=== PATIENT | male | born 1995 | race Two or more races ===

== ENCOUNTER 2021-02-22 04:10 | Emergency (ER) | payer OTHER ==
[2021-02-22 04:23] VITALS: BP 160/82; PULSE 87; TEMP 99.1; BMI 29.2
[2021-02-22] MEDS ORDERED: IBUPROFEN 600 MG TABLET (FP) PO ONE (04:52)
== END 2021-02-22 05:00 | disposition home or self-care (01) ==
LOC: FER 04:10
DX: S93.402A Sprain of unspecified ligament of left ankle, initial encounter (principal); X50.0XXA Overexertion from strenuous movement or load, initial encounter
CPT/HCPCS: 73610-TC-LT-FY; 99283-25